=== PATIENT | male | born 1985 | race Caucasian/White ===

== ENCOUNTER 2018-07-29 17:25 | Emergency (ER) | payer SELFPAY ==
[2018-07-29 17:54] VITALS: BP 142/84; PULSE 90; TEMP 98.6; BMI 24.4
--- NOTE | 2018-07-29 17:55 | PDOC ---
Rapid Medical Evaluation Time Seen by Provider: 07/29/18 17:53 Medical Evaluation: 07/29/18 17:54 Pt c/o: chad ear pain since friday, no fever or change in hearing pt on exam: no drainage, vss pt ordered for: pt to proceed to the ED Discharge Disposition - Diagnosis Ear pain - Referrals - Patient Instructions - Post Discharge Activity
--- NOTE | 2018-07-29 18:32 | PDOC ---
History of Present Illness - General Chief Complaint: Ear Problem Stated Complaint: EAR PROBLEM Time Seen by Provider: 07/29/18 17:53 History Source: Patient Exam Limitations: Clinical Condition - History of Present Illness Initial Comments: 07/29/18 18:26 Patient with no sig Past medical history present with complain of 2 days history of bilateral ear pain after using a swimming pool. Patient denies fever , decreased hearing, or change in hearing. Patient denies any other symptoms Timing/Duration: other (2 days) Past History - Past Medical History Allergies/Adverse Reactions: Allergies Allergy/AdvReac Type Severity Reaction Status Date / Time No Known Allergies Allergy Verified 07/29/18 17:54 Home Medications: Ambulatory Orders Ibuprofen 600 mg PO Q8H PRN #12 tablet 07/29/18 Neomycin/Polymyxin B/Hydrocort [Vbkqneps-Cpccxylth-Ac Ear Susp] 2 drop OT TID 5 Days #1 bottle 07/29/18 COPD: No - Suicide/Smoking/Psychosocial Hx Smoking History: Never smoked Review of Systems - Review of Systems Able to Perform ROS?: Yes Is the patient limited [place] proficient: No Constitutional: No: Chills, Diaphoresis, Fever, Loss of Appetite, Malaise, Night Sweats, Weakness, Weight Stable, Unintentional Wgt. Loss, Unexplained wgt Loss, Other HEENTM: Yes: See HPI, Ear Pain (b/l). No: Eye Pain, Blurred Vision, Tearing, Recent change in vision, Double Vision, Cataracts, Ocular Prothesis, Ear Discharge, Nose Pain, Nose Congestion, Tinnitus, Nose Bleeding, Hearing Loss, Throat Pain, Throat Swelling, Mouth Pain, Dental Problems, Difficulty Swallowing , Mouth Swelling, Other Respiratory: No: Cough, Orthopnea, Shortness of Breath, SOB with Exertion, SOB at Rest, Stridor, Wheezing, Productive cough, Hemoptysis, Other Cardiac (ROS): No: Chest Pain, Edema, Irregular Heart Rate, Lightheadedness, Palpitations, Syncope, Chest Tightness, Other ABD/GI: No: Abdominal Distended, Abd. Pain w/ defecation, Blood Streaked Bowels , Constipated, Diarrhea, Difficulty Swallowing, Nausea, Poor Appetite, Poor Fluid Intake, Rectal Bleeding, Vomiting, Indigestion, Abdominal cramping, Tarry Stools, Other Musculoskeletal: No: Back Pain, Gout, Joint Pain, Joint Swelling, Muscle Pain, Muscle Weakness, Neck Pain, Joint Stiffness, Other All Other Systems: Reviewed and Negative *Physical Exam - Vital Signs Last Vital Signs Temp Pulse Resp BP Pulse Ox 98.6 F 90 18 142/84 100 07/29/18 17:51 07/29/18 17:51 07/29/18 17:51 07/29/18 17:51 07/29/18 17:51 - Physical Exam Comments: 07/29/18 18:27 GENERAL: Well developed, well nourished. Awake and alert. No acute distress. HEENT: Mild erythema in left external ear canal. No fluid in left ear canal. Small amounts of fluid was mild swelling in right ear canal. Tympanic membrane normal bilateral. Normocephalic, atraumatic. PERRLA, EOMI. No conjunctival pallor. Sclera are non- icteric. Moist mucous membranes. Oropharynx is clear. NECK: Supple. Full ROM. No JVD. Carotid pulses 2+ and symmetric, without bruits. No thyromegaly. No lymphadenopathy. CARDIOVASCULAR: Regular rate and rhythm. No murmurs, rubs, or gallops. Distal pulses are 2+ and symmetric. PULMONARY: No evidence of respiratory distress. Lungs clear to auscultation bilaterally. No wheezing, rales or rhonchi. ABDOMINAL: Soft. Non-tender. Non-distended. No rebound or guarding. No organomegaly. Normoactive bowel sounds. MUSCULOSKELETAL Normal range of motion at all joints. No bony deformities or tenderness. No CVA tenderness. EXTREMITIES: No cyanosis. No clubbing. No edema. No calf tenderness. SKIN: Warm and dry. Normal capillary refill. No rashes. No jaundice. NEUROLOGICAL: Alert, awake, appropriate. Cranial nerves 2-12 intact. No deficits to light touch and temperature in face, upper extremities and lower extremities. No motor deficits in the in face, upper extremities and lower extremities. Normoreflexic in the upper and lower extremities. Normal speech. Toes are down- going bilaterally. Gait is normal without ataxia. PSYCHIATRIC: Cooperative. Good eye contact. Appropriate mood and affect. General Appearance: Yes: Nourished, Appropriately Dressed. No: Apparent Distress Medical Decision Making - Medical Decision Making 07/29/18 18:29 Patient with no sig Past medical history present with complain of 2 days history of bilateral ear pain after using swimming pool. Exam shows mild erythema in left ear canal and mild swelling with fluid and right ear canal. Symptoms likely otitis externa and will be treated an outpatient basis with ENT follow-up *DC/Admit/Observation/Transfer Diagnosis at time of Disposition: Ear pain Qualifiers: Laterality: bilateral Qualified Code(s): H92.03 - Otalgia, bilateral Otitis externa of both ears Qualifiers: Otitis externa type: swimmer's ear Chronicity: acute Qualified Code(s): H60.333 - Swimmer's ear, bilateral - Discharge Dispostion Disposition: HOME Condition at time of disposition: Stable Decision to Admit order: No - Prescriptions Prescriptions: Ibuprofen 600 mg PO Q8H PRN #12 tablet PRN Reason: pain Neomycin/Polymyxin B/Hydrocort [Nmxqecmp-Rxsdgkxyy-Jw Ear Susp] 2 drop OT TID 5 Days #1 bottle - Referrals Referrals: Liam Arevalo MD [Staff Physician] - - Patient Instructions Printed Discharge Instructions: DI for Otitis Externa Additional Instructions: Use prescribed medication as prescribed. Follow-up with referred ENT Print Language: GREEK - Post Discharge Activity
== END 2018-07-29 18:35 | disposition home or self-care (01) ==
LOC: JERFT 17:25
DX: H60.333 Swimmer's ear, bilateral (principal)
CPT/HCPCS: 99281-25